=== PATIENT | female | born 1965 | race Caucasian/White ===

== ENCOUNTER 2023-09-27 16:46 | Emergency (ER) | payer OTHER ==
[~2023-09-27] VITALS: Ht 172.7 cm; Wt 100.0 kg
[2023-09-27 16:54] VITALS: O2SAT 99
[2023-09-27 17:22] LABS: BASOPHILS % 0.4 % (0.0-2.0); EOSINOPHILS % 0.5 % (0.0-5.0); HEMATOCRIT. 42.4 % (36.0-48.0); HEMOGLOBIN. 14.4 g/dL (12.0-16.0); LYMPHOCYTES % 2.9 % (20.0-50.0); MEAN CORPUSCULAR HEMOGLOBIN 29.9 pg (28.0-32.0); MEAN CORPUSCULAR HGB CONC 33.9 g/dL (31.0-37.0); MEAN CORPUSCULAR VOLUME 88.1 fL (81.0-99.0); MEAN PLATELET VOLUME 6.9 fl (7.4-10.4); MONOCYTES % 5.5 % (2.0-8.0); NEUTROPHILS % 90.7 % (40.0-76.0); PLATELET 348 x1000/uL (130-400); RED BLOOD CELL COUNT 4.82 mill/uL (4.2-5.4); RED CELL DISTRIBUTION WIDTH 13.4 % (11.6-14.6)
[2023-09-27 17:30] LABS: DIFFERENTIAL COMMENT 1
[2023-09-27 17:33] LABS: ALANINE AMINOTRANSFERASE 35 IU/L (10-49); ALBUMIN 4.5 g/dL (3.2-4.8); ASPARTATE AMINOTRANSFERASE 45 IU/L (<34); BILIRUBIN TOTAL 0.7 mg/dL (0.1-1.0); CALCIUM 9.4 mg/dL (8.7-10.4); CARBON DIOXIDE 27 mEq/L (21-32); CHLORIDE 104 mEq/L (98-107); CREATININE 0.9 mg/dL (0.6-1.0); GLUCOSE 123 mg/dL (70-105); POTASSIUM 4.3 mEq/L (3.5-5.1); PROTEIN TOTAL 7.2 g/dL (6.0-8.3); SODIUM 136 mEq/L (136-145); UREA NITROGEN BLOOD 18 mg/dL (9-23)
[2023-09-27 17:59] LABS: HCG SCREEN NEGATIVE
[2023-09-27 18:01] LABS: CLARITY URINE CLEAR (CLEAR); COLOR URINE YELLOW (YELLOW); GLUCOSE URINE NEGATIVE (NEGATIVE); KETONES URINE NEGATIVE (NEGATIVE); LEUKOCYTE ESTERASE URINE 2+ (NEGATIVE); NITRITE URINE NEGATIVE (NEGATIVE); OCCULT BLOOD URINE TRACE (NEGATIVE); PROTEIN URINE TRACE (NEGATIVE); SPECIFIC GRAVITY URINE 1.016 (1.005-1.030)
[2023-09-27 18:21] LABS: SQUAMOUS EPITHELIAL CELL URINE FEW /lpf (RARE/1+)
[2023-09-27 18:22] LABS: BACTERIA URINE TRACE
[2023-09-27] MEDS ORDERED: IBUP-2029 MT (20:27)
[2023-09-27] MEDS ORDERED: CEPH500C2 MT (20:27)
[2023-09-27] MEDS: KETOROLAC 60MG/2ML VIAL IM ONE (21:01)
[2023-09-28] MEDS ORDERED: TAMS-11 MT (00:31)
[2023-09-28] MEDS ORDERED: IBUP-2029 MT (00:31)
[2023-09-28] MEDS ORDERED: CEPH500C2 MT (00:31)
[2023-09-28] MEDS: IBUPROFEN 400MG TABLET PO NR (00:46)
[2023-09-28] MEDS: TAMSULOSIN HCL 0.4MG SR CAPSULE PO NR (00:46)
[2023-09-28 00:47] VITALS: BP 136/78; PULSE 79; RESP 16; TEMP 97.9
== END 2023-09-28 00:49 | disposition home or self-care (01) ==
LOC: ER 17:17
DX: N10 Acute pyelonephritis (principal)
CPT/HCPCS: 99285; 74176; 80053; 81003; 84703; 85025; 36415; 96372; J1885